=== PATIENT | female | born 1955 | race Hispanic/Latino ===

== ENCOUNTER 2020-01-15 06:32 | Day surgery (SDC) | payer MEDICARE ==
[2020-01-15] MEDS ORDERED: SODIUM CHLORIDE 0.9% 500 ML 500 ML ONE (06:56)
[2020-01-15] MEDS ORDERED: SODIUM CHLORIDE 0.9% 500 ML 500 ML IV SCH (07:00)
[2020-01-15 07:18] LABS: Hematocrit 46.4 % (30.3-42.9); Hemoglobin 14.6 gm/dl (10.1-14.3); Mean Corpuscular HGB Conc 32 % (30-34); Mean Corpuscular Volume 96 fl (79-97); Platelet Count 272 K/mm3 (140-440); Red Blood Count 4.83 M/mm3 (3.65-5.03); Red Cell Distribution Width 14.6 % (13.2-15.2)
[2020-01-15 07:30] LABS: INR 0.96 (0.87-1.13)
[2020-01-15 07:31] LABS: Partial Thromboplastin Time 26.7 Sec. (24.2-36.6)
[2020-01-15 07:48] LABS: Calcium 8.9 mg/dL (8.4-10.2)
[2020-01-15] MEDS ORDERED: HEPARIN/NS 5000 UNIT/500ML 1,000 ML IR ONE (07:52)
[2020-01-15] MEDS ORDERED: LIDOCAINE 1%/EPINEPHRINE 1:100,000 VIAL (20 ML) INFILTRATI ONE (07:53)
[2020-01-15] MEDS ORDERED: fentaNYL 100 MCG/2 ML INJ ONE (07:53)
[2020-01-15] MEDS ORDERED: NITROGLYCERIN SYRINGE 3 ML ONE (08:21)
--- NOTE | 2020-01-15 08:21 | Short Stay Summary ---
Short Stay Documentation Date of service: 01/15/20 - History Principal diagnosis: Peripheral vascular disease with nonhealing wound on her second toe Past Medical History: COPD, PVD Social history: no significant social history, smoking - Allergies and Medications Current Medications: Allergies No Known Allergies Allergy (Unverified 01/15/20 06:48) Home Medications Medication Instructions Recorded Confirmed Last Taken Type ALBUTEROL NEB's [Proventil 0.083% 3 ml INHALATION QID PRN 01/15/20 01/15/20 01/14/20 History NEBS] 3 ml Albuterol Mdi (or & Nicu Only) 2 puff INHALATION Q4H PRN 01/15/20 01/15/20 01/14/20 History [ProAir HFA Inhaler] 2 puffs Furosemide [Lasix TAB] 40 mg PO DAILY 01/15/20 01/15/20 01/14/20 History 40 mg Gabapentin 300 mg PO BID 01/15/20 01/15/20 01/14/20 History 30 mg HYDROcodone/APAP 7.5-325 [[place] 1 tab PO BID PRN 01/15/20 01/15/20 01/15/20 04:00 History 7.5-325 mg TAB] 1 tab Lidocaine Topical 5% [Xylocaine 1 applic TRANSDERMA QID 01/15/20 01/15/20 01/14/20 History Topical 5%] 1 application Potassium Chloride [K-Dur] 20 meq PO QDAY 01/15/20 01/15/20 01/13/20 History 20 meq busPIRone [Buspar] 5 mg PO DAILY 01/15/20 01/15/20 01/14/20 History 5 mg carvediloL [Coreg] 12.5 mg PO BID 01/15/20 01/15/20 01/15/20 04:30 History 12.5mg glipiZIDE [Glucotrol] 5 mg PO BID 01/15/20 01/15/20 01/13/20 History 5 mg lisinopriL [Zestril TAB] 10 mg PO DAILY 01/15/20 01/15/20 01/14/20 History 10 mg predniSONE [Deltasone] 10 mg PO DAILY 01/15/20 01/15/20 01/14/20 History 10 mg Active Medications Sodium Chloride (Nacl 0.9% 500 Ml) 500 mls @ 50 mls/hr IV DIRECT JODIE Last Admin: 01/15/20 07:40 Dose: 50 mls/hr Documented by: - Physical exam General appearance: no acute distress Integumentary: no rash, no growths HEENT: Atraumatic Lungs: Normal air movement, Other (Oxygen dependent) Breasts: deferred Heart: Regular rate Gastrointestinal: normal Female Genitourinary: deferred Rectal Exam: deferred Extremities: abnormal Neurological: Normal gait, Normal speech - Brief post op/procedure progress note Date of procedure: 01/15/20 Pre-op diagnosis: PVD with nonhealing wound second left toe Post-op diagnosis: same Procedure: Diagnostic bilateral lower extremity angiography from a left radial artery approach Anesthesia: local Surgeon: BEATRICE ELLIOTT Estimated blood loss: minimal Pathology: none Condition: stable - Disposition Condition at discharge: Good Disposition: [id number] TO HOME OR SELFCARE Short Stay Discharge Plan Activity: advance as tolerated Weight Bearing Status: Weight Bear as Tolerated Diet: regular Wound: keep clean and dry, per your surgeon's advice Follow up with: ROXANNE RODRIGEZ MD [Primary Care Provider] - 7 Days
[2020-01-15] MEDS: VERAPAMIL 5 MG/2 ML INJ ONE ×2 (08:52→08:59)
[2020-01-15] MEDS: HEPARIN 10,000 UNITS/10 ML VIAL ONE ×2 (08:52→08:59)
[2020-01-15] MEDS: MIDAZOLAM 2 MG/2 ML INJ ONE ×2 (08:52→08:55)
--- NOTE | 2020-01-15 09:38 | Operative Report ---
Operative Report Operative Report: Exam: Aortogram and bilateral lower extremity angiogram Clinical indication: Patient with nonhealing wound to second toe, significant peripheral vascular disease Date: 01/15/2020 Procedure: Following an explanation of the risks, benefits and alternatives; written informed consent was obtained. The patient was brought to the angiographic suite and placed in supine position on the examination table. Initial ultrasound evaluation of her left wrist demonstrated a patent left radial artery. The patient's left wrist was prepped and draped in the usual sterile fashion. 1% lidocaine was used for anesthesia. Under ultrasound guidance, the left radial artery was cannulated with a 7 cm 21- gauge needle. A 0.018 guidewire was advanced centrally. The needle was removed and a 4/5 [place] low-profile sheath placed over the guidewire and advanced into the artery. A vertebral catheter was then advanced over the guidewire and together the guidewire and catheter advanced to the aortic arch. Selective cannulation of the descending aorta was not performed using the vertebral catheter. The vertebral catheter was ultimately switched out for a C2 catheter to allow angulation for the tortuous path of the descending thoracic aorta. The guidewire was advanced into the descending thoracic aorta and the C2 catheter exchanged for the vertebral catheter and together the vertebral catheter and guidewire were advanced down the descending aorta to just proximal to the bifurcation. Contrast was injected in the aorta. This demonstrates scattered areas of atherosclerotic disease. There is diminutive common iliac arteries and external iliac arteries bilaterally with scattered areas of atherosclerotic dis ease. No hemodynamically significant stenosis is identified. The catheter was advanced over the guidewire under fluoroscopy into the right external iliac artery. Contrast was injected and multiple images obtained throughout the leg. The SFA is diminutive throughout its course. Scattered scattered areas of atherosclerotic disease causing multifocal narrowing of 20 to 30% are present. The popliteal artery is present. The anterior tibial artery is the only vessel running off to the foot. No significant named pedal vessels are identified. The catheter was then withdrawn proximally into the aorta over the guidewire and selective cannulation of the right external iliac artery performed. Contrast was injected multiple images obtained throughout the leg. The SFA is occluded with a nub present at its origin. There is reconstitution of the mid to distal SFA. Popliteal artery is patent. There is anterior tibial artery flow to the foot with no significant pedal vessels. The catheter and guidewire and sheath were removed and hemostasis achieved at the left wrist using manual compression. A TR band was then applied. The patient tolerated the procedure well. There were no immediate postprocedure complications. A minimal amount of Versed was used for anxiolysis given the patient's respiratory status. Continuous cardiopulmonary monitoring was utilized. IMPRESSION: 1) Aortogram and bilateral lower extremity angiogram demonstrating on the left occlusion of the SFA just distal to its origin with reconstitution of the mid to distal SFA. There is only single tibial flow bilaterally. 2) The patient will need to be scheduled for reconstruction of her left SFA to allow maximal inflow and aid in wound healing. This will need to be scheduled at the hospital with both an antegrade and retrograde approach.
[2020-01-15 11:43] VITALS: BP 144/72
== END 2020-01-15 06:33 | disposition home or self-care (01) ==
LOC: CATHLABREC 06:32
PROVIDERS: ATTEND Radiology Diagnostic Radiology
DX: I70.203 Unspecified atherosclerosis of native arteries of extremities, bilateral legs (principal); I11.0 Hypertensive heart disease with heart failure; J43.9 Emphysema, unspecified; K21.9 Gastro-esophageal reflux disease without esophagitis; F17.210 Nicotine dependence, cigarettes, uncomplicated; M19.90 Unspecified osteoarthritis, unspecified site; Z90.710 Acquired absence of both cervix and uterus; Z98.890 Other specified postprocedural states; Z79.899 Other long term (current) drug therapy
CPT/HCPCS: 36246; 36415; 75625; 75716; 76937; 80048; 85027; 85610; 85730; 99156; 99157; C1769; C1894; J1644; J2250; J7040; 36247; J3010; Q9967